=== PATIENT | male | born 1945 | race Caucasian/White ===

== ENCOUNTER 2019-01-15 16:27 | Emergency (ER) | payer OTHER ==
[~2019-01-15] VITALS: Ht 185.4 cm; Wt 108.9 kg
[2019-01-15] MEDS ORDERED: ASPIR 8181 MG PO (16:39)
[2019-01-15] MEDS ORDERED: ALLOPURINOL 10100 M1 PO (16:39)
[2019-01-15] MEDS ORDERED: LISINOPRIL20 MG PO (16:40)
[2019-01-15] MEDS ORDERED: COREG25 MG PO (16:40)
[2019-01-15] MEDS ORDERED: FOLIC ACID1 MG PO (16:40)
[2019-01-15] MEDS ORDERED: HUMALOG100 UNIT/1 SUBQ (16:40)
[2019-01-15] MEDS ORDERED: LANTUS SUBQ (16:40)
[2019-01-15] MEDS ORDERED: FENOFIBRATE160 MG PO (16:40)
[2019-01-15] MEDS ORDERED: JANUMET 50-5001 EACH PO (16:40)
[2019-01-15] MEDS ORDERED: OSTEO BI-FLEX1 EAC1 PO (16:41)
[2019-01-15] MEDS ORDERED: MOBIC15 MG PO (16:41)
[2019-01-15] MEDS ORDERED: METHOTREXATE 22.5 MG PO (16:41)
[2019-01-15] MEDS ORDERED: TRAZODONE HCL50 MG PO (16:42)
[2019-01-15] MEDS ORDERED: ZOCOR20 MG PO (16:42)
[2019-01-15 17:38] VITALS: BP 108/63
[2019-01-15] MEDS ORDERED: XARELTO15 MG PO (17:39)
== END 2019-01-15 17:35 | disposition home or self-care (01) ==
LOC: ER 16:27
DX: I82.4Z2 Acute embolism and thrombosis of unspecified deep veins of left distal lower extremity (principal); E11.9 Type 2 diabetes mellitus without complications; E78.00 Pure hypercholesterolemia, unspecified